=== PATIENT | female | born 1995 | race Hispanic/Latino ===

== ENCOUNTER 2020-10-16 05:48 | Inpatient (IN) | payer OTHER ==
[2020-10-16 06:06] VITALS: BMI 32.6
[2020-10-16] MEDS ORDERED: Lidocaine 1% (PF) 30 ML VIAL SC PRN (06:48)
[2020-10-16] MEDS ORDERED: Ibuprofen 800 MG TAB PO PRN (06:48)
[2020-10-16] MEDS ORDERED: Ondansetron PF 4 MG/2 ML Vial IVP PRN ×3 (06:48→16:33)
[2020-10-16] MEDS ORDERED: hydrALAZINE 20 MG/ML VIAL SLOW IVP PRN ×2 (06:48→16:33)
[2020-10-16] MEDS ORDERED: Butorphanol Tartrate 1 MG/ML VIAL SLOW IVP PRN (06:48)
[2020-10-16] MEDS ORDERED: HYDROcodone/Acetaminophen 5/325 mg Tablet PO PRN (06:48)
[2020-10-16] MEDS ORDERED: Lactated Ringer's 1,000 ML IV SCH (07:00)
[2020-10-16] MEDS ORDERED: NS w/ Oxytocin 30 units 500 ML IVPB SCH (07:00)
[2020-10-16] MEDS ORDERED: NS w/ Oxytocin 30 units 500 ML IV SCH (07:00)
[2020-10-16] MEDS: Lactated Ringer's 1,000 ML IV SCH ×2 (07:10→14:30)
[2020-10-16 07:45] LABS: Hemoglobin 10.1 g/dL (12.0-15.5); Mean Corpuscular HGB CONC 31.6 g/dL (32.0-36.0); Mean Corpuscular Hemoglobin 23.8 pg (27.0-33.0); Mean Corpuscular Volume 75.3 fl (81.6-98.3); Mean Platelet Volume 11.9 fl (7.4-10.4); Platelet Count 278 10x3/uL (150-450); RBC Distribution Width 16.2 % (11.5-14.5); Red Blood Cell (RBC) Count 4.25 10x6/uL (3.90-5.03)
[2020-10-16] MEDS ORDERED: Fentanyl 2 mcg/Bup 0.1% Cadd 100 ML ONE (07:54)
[2020-10-16 08:37] LABS: HIV (1/2) Antibody/Antigen Non-Reactive (NonReactive); HIV 1/2 INDEX 0.17 S/CO (<1.00); Hep B Surf Ag Non-Reactive S/CO (NonReactive); Syphilis Antibody Nonreactive (Nonreactive); Syphilis Antibody Index 0.06 S/CO (<1.00 Non-Reactive)
[2020-10-16 08:41] LABS: HBSAg Index 0.16 S/CO (0-0.99)
[2020-10-16] MEDS ORDERED: Naloxone HCl 0.4 mg/ml Vial IVP PRN ×2 (09:01)
[2020-10-16] MEDS ORDERED: ePHEDrine Sulfate 50 MG/10 ML VIAL SLOW IVP PRN (09:01)
[2020-10-16] MEDS ORDERED: Hydrocerin (Eucerin) Cream 120 gm Jar TOP PRN (09:01)
[2020-10-16] MEDS ORDERED: Acetaminophen 325 MG TAB PO PRN (09:01)
[2020-10-16] MEDS ORDERED: diphenhydrAMINE 50 MG/ML VIAL IVP PRN (09:01)
[2020-10-16] MEDS ORDERED: Lactated Ringer's 500 ML IV PRN (09:01)
[2020-10-16] MEDS ORDERED: Promethazine HCl 25 MG/ML VIAL IM PRN (09:01)
[2020-10-16] MEDS ORDERED: Fentanyl 2 mcg/Bupivacaine 0.1% Cassette 100 ML EPIDURAL SCH (09:15)
[2020-10-16] MEDS ORDERED: Penicillin G Potassium 5 MILL.UNITS in Sodium Chloride 0.9% 100 ML IVPB SCH (09:15)
[2020-10-16] MEDS ORDERED: Communication Order-Pharmacy FS SCH (09:15)
[2020-10-16 09:54] LABS: Amphetamine Not Detected (NotDetected); Barbiturates Screen Not Detected (NotDetected); Benzodiazepine Screen Not Detected (NotDetected); Cocaine Metabolite Screen Not Detected (NotDetected); Methadone Not Detected (NotDetected); Methamphetamine Not Detected (NotDetected); Opiate Screen Not Detected (NotDetected); Oxycodone Screen Not Detected (NotDetected); Phencyclidine (PCP) Not Detected (NotDetected); THC/Cannabinoid Screen Not Detected (NotDetected); Tricyclic Screen Not Detected (NotDetected)
[2020-10-16] MEDS ORDERED: Bupivacaine 0.25% HCL 30 ML VIAL ONE (12:17)
[2020-10-16] MEDS ORDERED: Misoprostol 200 MCG TAB VAG PRN (16:33)
[2020-10-16] MEDS ORDERED: Milk Of Magnesia 30 ML UDCUP PO PRN (16:33)
[2020-10-16] MEDS ORDERED: diphenhydrAMINE 25 MG CAP PO PRN (16:33)
[2020-10-16] MEDS ORDERED: Preparation H Ointment 28 GM TUBE PR PRN (16:33)
[2020-10-16] MEDS ORDERED: Methylergonovine 0.2 MG/ML VIAL IM PRN (16:33)
[2020-10-16] MEDS ORDERED: Bisacodyl 10 MG SUPP PR PRN (16:33)
[2020-10-16] MEDS ORDERED: Boostrix 0.5 ML (Tdap) VIAL IM ONE (16:33)
[2020-10-16] MEDS: Ibuprofen 800 MG TAB PO SCH ×2 (17:14→23:59)
[2020-10-16 18:41] LABS: SARS-CoV-2 PCR by NAA Not Detected (NotDetected)
[2020-10-16] MEDS: Docusate Calcium (SURFAK) 240 MG CAP PO SCH (23:59)
[2020-10-17] MEDS: Penicillin G 2.5 MILL.units 2.5 MILL.UNITS in Premix Bag 1 BAG IVPB SCH ×3 (01:04→06:59)
[2020-10-17] MEDS: Ferrous Sulfate 325 MG TAB PO SCH ×3 (01:05→17:13)
[2020-10-17] MEDS: Lactated Ringer's 1,000 ML IV SCH ×2 (01:06→06:59)
[2020-10-17 06:37] LABS: Hemoglobin 8.7 g/dL (12.0-15.5)
[2020-10-17] MEDS: Ibuprofen 800 MG TAB PO SCH ×3 (06:50→21:45)
[2020-10-17] MEDS: Prenatal Vitamin 1 TAB PO SCH (08:17)
[2020-10-17] MEDS: Docusate Calcium (SURFAK) 240 MG CAP PO SCH ×2 (08:17→21:45)
[2020-10-18] MEDS: Ibuprofen 800 MG TAB PO SCH ×2 (04:53→14:47)
[2020-10-18 07:59] VITALS: BP 100/50; TEMP 98.4
[2020-10-18] MEDS: Ferrous Sulfate 325 MG TAB PO SCH (08:41)
[2020-10-18] MEDS: Docusate Calcium (SURFAK) 240 MG CAP PO SCH (08:41)
[2020-10-18] MEDS: Prenatal Vitamin 1 TAB PO SCH (08:41)
== END 2020-10-18 15:40 | disposition home or self-care (01) | DRG 807 ==
LOC: CSHLD/OP 05:48 → CSHLD 15:55 → CSHPP 17:45
PROVIDERS: ADMIT Family Medicine; ATTEND Family Medicine
PROC: 10E0XZZ Delivery of Products of Conception, External Approach (ICD-10-PCS; principal; 2020-10-16)
DX: O99.214 Obesity complicating childbirth (principal); Z37.0 Single live birth; Z3A.40 40 weeks gestation of pregnancy; O71.82 Other specified trauma to perineum and vulva; Z20.822 Contact with and (suspected) exposure to COVID-19
CPT/HCPCS: 36415; 51702; 76815; 80306; 85014; 85018; 85027; 86762; 86780; 86850; 86900; 86901; 87340; 87389; 99285; J2001; J2540; J2590; J3490; S0020; U0003; U0005